=== PATIENT | male | born 1960 | race Asian ===

== ENCOUNTER 2023-07-02 08:29 | Day surgery (SDC) | payer OTHER ==
[~2023-07-02] VITALS: Ht 177.8 cm; Wt 59.0 kg
[2023-07-02 08:50] VITALS: O2SAT 97
[2023-07-02] MEDS ORDERED: MIDAZOLAM HCL 5 MG/5 ML VIAL ONE (09:13)
[2023-07-02] MEDS ORDERED: MEPERIDINE 100 MG INJ. 100 MG/ML VIAL ONE (09:13)
[2023-07-02 16:04] VITALS: BP_SYST 112; PULSE 85; RESP 28; TEMP 98
== END 2023-07-02 12:00 | disposition home or self-care (01) ==
LOC: SDS 08:29 → SMU 08:32 → SDS 12:00
PROVIDERS: ATTEND Internal Medicine Gastroenterology
DX: Z12.11 Encounter for screening for malignant neoplasm of colon (principal); D12.2 Benign neoplasm of ascending colon; K57.30 Diverticulosis of large intestine without perforation or abscess without bleeding; K64.8 Other hemorrhoids; I10 Essential (primary) hypertension; E78.5 Hyperlipidemia, unspecified; E11.9 Type 2 diabetes mellitus without complications; J45.909 Unspecified asthma, uncomplicated; Z79.84 Long term (current) use of oral hypoglycemic drugs; Z79.899 Other long term (current) drug therapy
CPT/HCPCS: 45385; 82962; 88305; 99152; G0378; J2250; J2175